=== PATIENT | male | born 1985 | race Two or more races ===

== ENCOUNTER 2023-03-05 02:48 | Emergency (ER) | payer OTHER ==
[~2023-03-05] VITALS: Ht 172.7 cm; Wt 83.2 kg
[2023-03-05 03:27] VITALS: BP 103/46
== END 2023-03-05 05:55 | disposition left against medical advice (07) ==
LOC: ER 02:48
DX: R10.11 Right upper quadrant pain (principal); R11.0 Nausea; Z53.21 Procedure and treatment not carried out due to patient leaving prior to being seen by health care provider